=== PATIENT | male | born 1975 | race Caucasian/White ===

== ENCOUNTER 2017-03-20 08:28 | Emergency (ER) | payer OTHER ==
[~2017-03-20] VITALS: Ht 195.6 cm; Wt 131.8 kg
[2017-03-20 08:35] VITALS: BP 117/68; PULSE 88; RESP 21; O2SAT 100
--- NOTE | 2017-03-20 08:42 | ED.REPORT ---
HPI-General Illness Date of Service Mar 20, 2017 ED Provider: Mia Limon MD The pt is a 41 y/o male w/ a hx of HTN presenting to the ED complaining of shakiness onset 0730 this morning. He reports beginning to feel shaky and having goosebumps initially, went outside to sit down and catch his breath and then began to feel short of breath and nauseas. He also reports waking up w/ a headache this morning, which went away after taking Tylenol, as well as generalized achiness, and lethargy. Denies a cough, abdominal pain, dysuria, constipation or diarrhea. The pt has also been noticing more skin tags and moles recently. When the pt got under a blanket he reports his shakiness decreasing. He also reports similar symptoms when he received a sting from a ground wasp to his inner thigh. Nursing Notes Stated Complaint: SHAKING, SHORT OF BREATH Chief Complaint: Shaking Nursing Notes Reviewed: Yes Allergies: Coded Allergies: No Known Allergies (Verified Allergy, Unknown, 03/20/17) Scheduled Sulfamethoxazole/Trimeth 800-160 mg (Bactrim DS) 1 Each Tablet 1 TABLET PO BID General Time Seen by MD: 08:42 Chief Complaint Other (Shakiness) Hx Obtained From: Patient Arrived By: Walk-in Sudden in Onset?: Yes Onset Occurred: 1 - 4 hours ago Symptom Duration: Waxes and wanes Recent Healthcare: No recent doctor visit, No recent hospitalization Similar Sx Previous: Yes Past Medical History Past Medical History HTN Past Surgical History Reports: Tonsillectomy Smoking History Former Smoker Social History The pt uses marijuana occasionaly and last used heroin, cocaine, benzodiazepines in 2002. Alcohol Use: Denies alcohol use Other Social History: Good social support, Occupation lives with spouse and 2 kids Review of Systems Goosebumps, generalized achiness, lethargy Full Review of Systems Respiratory: Reports: Shortness of breath, Denies: Non-productive cough GI: Reports: Nausea, Denies: Constipation Male: Denies Dysuria Neurologic: Reports: Headache, Shaking Complete sys rev & neg: except as marked. Physical Exam Vital Signs Vital Signs Date Time Temp Pulse Resp B/P Pulse Ox O2 Delivery O2 Flow Rate FiO2 03/20/17 11:28 37 89 16 119/61 99 Room Air 03/20/17 10:18 37 95 16 106/48 98 Room Air 03/20/17 08:35 36.9 88 21 117/68 100 Room Air Initial VS: Reviewed General/Constitutional: Awake, Alert, No acute distress Head / Eyes: Atraumatic, Normocephalic ENT: Atraumatic, Airway patent, Mucous membranes moist Neck: Atraumatic, Full range of motion Respiratory / Chest: Atraumatic, Breath sounds NL, Breath sounds = bilat Cardiovascular: Heart rate NL, Regular rhythm, Heart sounds NL Heart Sounds / Murmur: Positive: Systolic murmur present.. (II/) Abdomen: Soft, Non-tender, BS normoactive R inguinal tenderness Upper Extremities Upper Extremity / MS: Atraumatic, Full range of motion, No deformity Skin: Warm, Dry Face and upper chest are flushed but does not appear like a rash specifically 1x1 cm area of erythema that looks like an abrasion on the lower L murrell w/ a 8x20 cm area of erythema extending up the inner part of the calf Neurologic: Oriented X3, Speech NL Psychiatric: Affect NL, Mood NL Interpretation & Diagnostics Lab Results Interpretation Result Diagram: 03/20/17 0925 03/20/17 0925 Test 03/20/17 09:25 White Blood Count 14.9th/mm3 (3.8-10.1) Red Blood Count 5.05mil/mm3 (4.40-5.80) Hemoglobin 15.1g/dL (13.8-17.2) Hematocrit 43.9% (41.0-50.0) Mean Corpuscular Volume 86.9fL (81-100) Mean Corpuscular Hemoglobin 29.9pg (27.0-35.0) Mean Corpuscular Hemoglobin Concent 34.4% (32.0-37.0) Red Cell Distribution Width 11.7% (12.3-15.4) Platelet Count 227bil/L (150-400) Neutrophils (%) (Auto) 89.7% (40-74) Lymphocytes (%) (Auto) 5.9% (14-46) Monocytes (%) (Auto) 3.6% (4-12) Eosinophils (%) (Auto) 0.4% (0-5) Basophils (%) (Auto) 0.2% (0-3) Urine Color Yellow (YELLOW) Urine Appearance Clear (CLEAR,HAZY) Urine pH 6.5 (5.0-8.0) Urine Specific [place] 1.025 (1.003-1.035) Urine Protein Tracemg/dL (NEG,TRACE) Urine Glucose (UA) Negativemg/dL (NEGATIVE) Urine Ketones Negativemg/dL (NEGATIVE) Urine Occult Blood Negative (NEGATIVE) Urine Nitrite Negative (NEGATIVE) Urine Bilirubin Negative (NEGATIVE) Urine Urobilinogen Normalmg/dL (NORMAL) Urine Leukocyte Esterase Negative (NEGATIVE) Urine RBC 3-10/hpf (0-2) Urine WBC 0-5/hpf (0-5) Urine Epithelial Cells Occasional/hpf (NONE-MOD) Urine Crystals None seen (NONE SEEN) Urine Bacteria Moderate/hpf (NONE-FEW) Urine Hyaline Casts None/lpf (NONE) Urine Granular Casts None seen (NONE SEEN) Urine Waxy Casts None seen (NONE SEEN) Urine Red Blood Cell Casts None seen (NONE SEEN) Urine White Blood Cell Casts None seen (NONE SEEN) Urine Mucus Present (None Seen) Urine Trichomonas None seen (NONE SEEN) Urine Yeast None (NONE SEEN) Urinalysis Comment None Urine Culture Reflexed Indicated Sodium Level 137mEq/L (134-144) Potassium Level 4.1mEq/L (3.5-5.2) Chloride Level 101mEq/L (97-108) Carbon Dioxide Level 21mmol/L (18-29) Blood Urea Nitrogen 18mg/dL (6-24) Creatinine 0.89mg/dL (0.76-1.27) Estimat Glomerular Filtration Rate 99mL/min (>59) Glucose Level 104mg/dL (60-99) Lactic Acid Level 1.8mmol/L (0.4-2.0) Calcium Level 8.8mg/dL (8.5-10.1) Total Bilirubin 0.4mg/dL (0.0-1.2) Aspartate Amino Transf (AST/SGOT) 27U/L (0-50) Alanine Aminotransferase (ALT/SGPT) 33U/L (0-44) Alkaline Phosphatase 76U/L (25-150) Total Protein 7.4g/dL (6.4-8.4) Albumin 4.3g/dL (3.4-5.0) Procalcitonin 0.18ng/mL (0.00-0.08) X-Ray Chest Interpretation Chest Xray Interpretation: IMPRESSION: No acute pulmonary process. Dictated by: Marizol Marion M.D. on 03/20/2017 at 8:55 Approved by: Marizol Marion M.D. on 03/20/2017 at 8:56 View: Portable, 1 view Interpretation / Wet Read by: Interpret - Radiologist Re-Eval/Medical Decision Source of Hx: Old records Counseled Regarding: Diagnosis, Lab results, Need for follow-up, When/why to return to ED Discharge & Departure Primary Impression: Cellulitis of left lower extremity Disposition: Home Discharge Condition All VS Reviewed: Yes Condition: Stable Additional Instructions: Thank for you entrusting us with your care today. You were diagnosed with left lower extremity cellulitis. The bloodwork shows that you have an infection but I am not finding anything that says you need to be hospitalized. Please take the antibiotics as prescribed and try to take the 2 doses today to begin with. You can expect fevers for the next 24 hours but please return to the emergency department if the fevers continue or you experience any confusion, shortness of breath, the area of redness spreads further up your leg, or any other new or worsening symptoms. You can also Tylenol and Ibuprofen to help decrease your symptoms. I hope you feel better soon. Your Septra (antibiotic) has been electronically sent to [facility] today. Referrals: Pushpa Sam MD (PCP) Scribe Attestation Portions of this note were transcribed by Sesar Soares. I, Dr. Limon personally performed the history, physical exam and medical decision-making; I reviewed and confirmed the accuracy of the information in the transcribed note. copies to: Pushpa Sam MD, Shawna L MD Mar 20, 2017 08:42 Sesar Soares Mar 20, 2017 10:19
[2017-03-20] MEDS ORDERED: Ondansetron 8 mg ODT Tablet ONE (08:45)
[2017-03-20] MEDS ORDERED: cefTRIAXone Inj 2,000 MG in Dextrose 5% Minibag Plus 50 ML IV ONE (09:10)
[2017-03-20 09:40] LABS: BASOPHILS % (AUTO) 0.2 % (0-3); EOSINOPHILS % (AUTO) 0.4 % (0-5); MONOCYTES % (AUTO) 3.6 % (4-12); Mean Corpuscular Hemoglobin 29.9 pg (27.0-35.0); Mean Corpuscular Volume 86.9 fL (81-100); NEUTROPHILS % (AUTO) 89.7 % (40-74); Platelet Count 227 bil/L (150-400)
[2017-03-20 09:55] LABS: APPEARANCE,URINE CLEAR (CLEAR,HAZY); COLOR,URINE YELLOW (YELLOW); OCCULT BLOOD,URINE NEGATIVE (NEGATIVE); PH,URINE 6.5 (5.0-8.0); UROBILINOGEN,URINE NORMAL (NORMAL)
--- NOTE | 2017-03-20 09:57 | DRSVH ---
PROCEDURE: X-RAY CHEST ONE VIEW, PORTABLE ([id number]) INDICATIONS: fever TECHNIQUE: One view of the chest was acquired. COMPARISON: None. FINDINGS: Surgical changes and devices: None. Lungs and pleura: No pleural effusions or pneumothorax. Lungs are clear. Mediastinum: Mediastinal contours appear normal. Heart size is normal. Bones and chest wall: No suspicious bony lesions. Overlying soft tissues appear unremarkable. IMPRESSION: No acute pulmonary process. Dictated by: Marizol Marion M.D. on 03/20/2017 at 8:55 Approved by: Marizol Marion M.D. on 03/20/2017 at 8:56
[2017-03-20 10:18] VITALS: BP 106/48; PULSE 95; RESP 16; O2SAT 98
[2017-03-20] MEDS ORDERED: SULF1TAB7 PO (11:22)
[2017-03-20 11:28] VITALS: BP 119/61; PULSE 89; RESP 16; O2SAT 99
== END 2017-03-20 11:29 | disposition home or self-care (01) ==
LOC: SED 08:28
DX: L03.116 Cellulitis of left lower limb (principal); R25.1 Tremor, unspecified; R06.02 Shortness of breath; R11.0 Nausea; R51 Headache; I10 Essential (primary) hypertension; Z87.891 Personal history of nicotine dependence
CPT/HCPCS: 36415; 71010; 80053; 81000; 83605; 84145; 85025; 87040; 87086; 87088; 96365; 99285; J0696